=== PATIENT | female | born 1950 | race Caucasian/White ===

== ENCOUNTER 2016-12-20 11:51 | Emergency (ER) | payer OTHER ==
[~2016-12-20] VITALS: Ht 160 cm; Wt 61.5 kg
[~2016-12-20 11:51] MED LIST: AMLODIPINE BESYL5 MG; AMLODIPINE BESYL5 MG PO; ASPIR 8181 M1 PO; ASPIRIN81 M1 PO; ATORVASTATIN 40 MG T; ATORVASTATIN CA40 MG PO; AUGMENTIN875 MG PO; BACTRIM,SEPT1 TABLET PO; CILOSTAZOL50 MG PO; CLOPIDOGREL75 MG PO; DOXYCYCLINE HY100 MG PO; HTN; KEFLEX500 MG PO; LIPITOR40 MG PO; LORTAB 5-500 T1 EACH PO; NAPROSYN500 MG PO; NAPROXEN500 M2 PO; NORCO 5/3251 TABLET PO; NORVASC5 MG PO; PERCOCET 5-3251 EACH PO; PERCOCET 5/31 TABLET PO
[2016-12-20] MEDS ORDERED: CLEOCIN300 MG PO (14:26)
[2016-12-20 14:44] VITALS: BP 107/84
== END 2016-12-20 14:45 | disposition home or self-care (01) ==
LOC: EME 11:51
DX: R19.04 Left lower quadrant abdominal swelling, mass and lump (principal); L98.8 Other specified disorders of the skin and subcutaneous tissue; L53.9 Erythematous condition, unspecified; Z86.14 Personal history of Methicillin resistant Staphylococcus aureus infection; Z72.0 Tobacco use
CPT/HCPCS: 99281; 99283

== ENCOUNTER 2017-09-01 22:17 | Emergency (ER) | payer OTHER ==
[~2017-09-01] VITALS: Ht 160 cm; Wt 61.5 kg
[~2017-09-01 22:17] MED LIST changes: +CLEOCIN300 MG PO
[2017-09-02] MEDS ORDERED: ULTRAM50 MG PO (03:12)
[2017-09-02 03:42] VITALS: BP 134/76
== END 2017-09-02 03:44 | disposition home or self-care (01) ==
LOC: EME 22:17
DX: S43.401A Unspecified sprain of right shoulder joint, initial encounter (principal); S46.001A Unspecified injury of muscle(s) and tendon(s) of the rotator cuff of right shoulder, initial encounter; F17.200 Nicotine dependence, unspecified, uncomplicated; X50.9XXA Other and unspecified overexertion or strenuous movements or postures, initial encounter; Z79.01 Long term (current) use of anticoagulants; Z86.79 Personal history of other diseases of the circulatory system; Z87.19 Personal history of other diseases of the digestive system
CPT/HCPCS: 73030; 99281; 99283